=== PATIENT | male | born 1990 | race Two or more races ===

== ENCOUNTER 2018-12-10 18:39 | Emergency (ER) | payer SELFPAY ==
[~2018-12-10] VITALS: Ht 165.1 cm; Wt 73.9 kg
[2018-12-10 20:03] LABS: BASOPHILS # (AUTO) 0.1 /CMM (0.0-0.2); BASOPHILS % (AUTO) 1.4 % (0.0-2.0); EOSINOPHILS % (AUTO) 2.5 % (0.0-6.0); HEMATOCRIT 43 % (39-51); HEMOGLOBIN 14.1 g/dL (13.5-17.5); LYMPHOCYTES # (AUTO) 2.9 /CMM (0.8-4.8); LYMPHOCYTES % (AUTO) 49.8 % (20.0-44.0); MEAN CORPUSCULAR HGB CONC 33 g/dl (31.0-36.0); MEAN CORPUSCULAR VOLUME 87 fL (80-96); MONOCYTES # (AUTO) 0.3 /CMM (0.1-1.30); MONOCYTES % (AUTO) 5.2 % (2.0-12.0); NEUTROPHILS # (AUTO) 2.4 /CMM (1.8-8.9); NEUTROPHILS % (AUTO) 41.1 % (43.0-81.0); PLATELET COUNT (AUTO) 304 /CMM (150-450); RED BLOOD CELL COUNT(AUTO) 4.91 MIL/uL (4.5-6.0); WHITE BLOOD COUNT (AUTO) 5.9 K/uL (4.3-11.0)
[2018-12-10 20:12] LABS: CALCIUM, SERUM 8.1 mg/dL (8.5-10.1); CARBON DIOXIDE 28 mmol/L (21-32); CHLORIDE 109 mmol/L (98-107); CREATININE 0.8 mg/dL (0.6-1.3); GLUCOSE 101 mg/dL (74-106); POTASSIUM 3.8 mmol/L (3.5-5.1); SODIUM SERUM 144 mmol/L (136-145); UREA NITROGEN, BLOOD 9 mg/dL (7-18)
[2018-12-10 20:27] LABS: ALANINE AMINOTRANSFERASE 63 U/L (12-78); ALBUMIN 3.8 g/dL (3.4-5.0); ALCOHOL, BLOOD 416 mg/dL (0-0); ALKALINE PHOSPHATASE 95 U/L (46-116); ASPARTATE AMINOTRANSFERASE 36 U/L (15-37); BILIRUBIN,TOTAL 0.4 mg/dL (0.2-1.0); SALICYLATE 0.4 mg/dL (2.8-20.0); TOTAL PROTEIN, SERUM 7.3 g/dL (6.4-8.2)
[2018-12-10 20:28] LABS: ACETAMINOPHEN < 10 ug/ml (10-30)
--- NOTE | 2018-12-11 00:37 | NUR ---
PT SLEEPING IN GURNEY. NO SIGNS OF DISTRESS NOTED. PT VITAL SIGNS STABLE. PT EASILY AROUSABLE. WILL CONT TO MONITOR PT.
--- NOTE | 2018-12-11 02:30 | NUR ---
PT AMBULATORY TO RESTROOM.
--- NOTE | 2018-12-11 05:50 | NUR ---
PT OK TO BE DISCHARGED PER DR YORK. IV removed. Catheter intact and site benign. Pressure and 4x4 applied to site. No bleeding noted.Patient discharged to home in stable condition. Written and verbal after care instructions given. Patient verbalizes understanding of instruction.Patient is awake and alert to self, day, and place. PT ambulatory with a steady gait. Pt states he will take bus home.
[2018-12-11 06:28] VITALS: BP 118/65
== END 2018-12-11 06:29 | disposition home or self-care (01) ==
LOC: ER 18:41 → EDBD 18:41 → ER 12-11 06:29
DX: F10.129 Alcohol abuse with intoxication, unspecified (principal); R40.4 Transient alteration of awareness; Y90.8 Blood alcohol level of 240 mg/100 ml or more
CPT/HCPCS: 36415; 70450; 80048; 80076; 80307; 80329; 85025; 93005; 99284; G0480